=== PATIENT | male | born 1965 | race Caucasian/White ===

== ENCOUNTER 2021-07-31 04:37 | Day surgery (SDC) | payer BC, OTHER ==
[2021-07-28 07:26] VITALS: BMI 32.1
[2021-07-31 08:36] VITALS: TEMP 97.5
[2021-07-31 09:24] VITALS: BP 112/74; PULSE 59
== END 2021-07-31 09:15 | disposition home or self-care (01) ==
LOC: JASU-ENDO 04:37
PROVIDERS: ATTEND Internal Medicine Gastroenterology
PROC: 0DBH8ZX Excision of Cecum, Via Natural or Artificial Opening Endoscopic, Diagnostic (ICD-10-PCS; principal; 2021-07-31 08:00)
DX: Z12.11 Encounter for screening for malignant neoplasm of colon (principal); D12.0 Benign neoplasm of cecum; K64.8 Other hemorrhoids; K57.30 Diverticulosis of large intestine without perforation or abscess without bleeding
CPT/HCPCS: 88305-TC